=== PATIENT | male | born 1980 | race African-American/Black ===

== ENCOUNTER 2016-08-06 02:33 | Emergency (ER) | payer SELFPAY ==
[~2016-08-06] VITALS: Ht 180.3 cm; Wt 164.2 kg
[~2016-08-06 02:33] MED LIST: ALLOPURINOL100 MG PO; BENICAR HCT1 TA1 PO; FIORICET PO; INDOCIN25 MG PO; NAPROSYN500 MG OR; NO HOME MEDS; OXYCODONE30 MG PO; PERCOCET 5/325M1 TAB PO; PHENTERMINE H37.5 MG PO; PREVACID30 M2 OR; REGLAN10 MG OR; SUDAFED30 MG OR; ULORIC80 MG PO; ULTRAM50 M1 PO; VICKS NYQUI1 OR; ZPAK OR
[2016-08-06] MEDS ORDERED: ALLOPURINOL300 MG PO ×2 (03:03→05:02)
[2016-08-06] MEDS ORDERED: INDOCIN50 MG/CAP PO (03:03)
[2016-08-06] MEDS ORDERED: INDOMETHACIN25 MG PO (05:02)
[2016-08-06 05:07] VITALS: BP 162/107
== END 2016-08-06 05:10 | disposition home or self-care (01) | DRG 554 ==
LOC: ED 02:33
DX: M10.9 Gout, unspecified (principal)

== ENCOUNTER 2018-10-04 19:00 | Emergency (ER) | payer SELFPAY ==
[~2018-10-04] VITALS: Ht 180.3 cm; Wt 145.0 kg
[~2018-10-04 19:00] MED LIST changes: +ALLOPURINOL300 MG PO; +INDOCIN50 MG/CAP PO; +INDOMETHACIN25 MG PO
[2018-10-04] MEDS ORDERED: ULORIC80 MG PO (19:22)
[2018-10-04] MEDS ORDERED: TRAMADOL HCL50 MG PO (19:22)
[2018-10-04] MEDS ORDERED: PREDNISONE50 MG PO (19:22)
[2018-10-04] MEDS ORDERED: COLCHICINE0.6 M2 PO (19:22)
[2018-10-04] MEDS ORDERED: CATAPRES0.2 MG PO (19:22)
[2018-10-04 20:08] VITALS: BP 196/103
== END 2018-10-04 20:08 | disposition home or self-care (01) | DRG 554 ==
LOC: ED 19:00
DX: M10.041 Idiopathic gout, right hand (principal)

== ENCOUNTER 2019-07-26 | Emergency (ER) | payer OTHER ==
[~2019-07-26] MED LIST changes: +CATAPRES0.2 MG PO; +COLCHICINE0.6 M2 PO; +PREDNISONE50 MG PO; +TRAMADOL HCL50 MG PO
[2019-07-26] MEDS ORDERED: ALLOPURINOL100 MG PO (08:06)
[2019-07-26] MEDS ORDERED: CATAPRES0.2 MG PO (09:24)
[2019-07-26] MEDS ORDERED: FLEXERIL PO (09:25)
== END 2019-07-26 10:00 | disposition home or self-care (01) | DRG 552 ==
DX: S16.1XXA Strain of muscle, fascia and tendon at neck level, initial encounter (principal); S00.93XA Contusion of unspecified part of head, initial encounter; S33.5XXA Sprain of ligaments of lumbar spine, initial encounter; I10 Essential (primary) hypertension; V59.40XA Driver of pick-up truck or van injured in collision with unspecified motor vehicles in traffic accident, initial encounter

== ENCOUNTER 2020-01-17 21:36 | Emergency (ER) | payer OTHER ==
[~2020-01-17] VITALS: Ht 180.3 cm; Wt 127.0 kg
[~2020-01-17 21:36] MED LIST changes: +FLEXERIL PO
[2020-01-17 22:52] VITALS: BP 118/67
--- NOTE | 2020-01-19 08:00 | NUR ---
Notified patient of positive Covid results. Patient states he is feeling better and denies any dypnea. Advised patient to quarantine until contacted by [facility] and to return to the ED with any shortness of breath or difficulty breathing. Patient verbalized understanding.
== END 2020-01-17 22:52 | disposition home or self-care (01) ==
LOC: ED 21:36
DX: U07.1 COVID-19 (principal); J06.9 Acute upper respiratory infection, unspecified

== ENCOUNTER 2021-03-14 23:25 | Emergency (ER) | payer OTHER ==
[~2021-03-14] VITALS: Ht 180.3 cm; Wt 181.4 kg
[2021-03-15 01:12] LABS: HEMATOCRIT 42.2 % (39.0-50.0); HEMOGLOBIN 13.5 g/dl (14.0-18.0); IMMATURE GRANULOCYTES 0.5 % (0.0-5.0); MEAN CELL VOLUME 90.2 fL CALC (80.0-100.0); MEAN CORPUSCULAR HGB 28.8 pG CALC (26.0-32.0); NEUT# 3.51 thou/uL (1.82-7.42); RED BLOOD COUNT 4.68 mill/uL (4.70-6.10); RED CELL DISTRI WIDTH 13.8 % (11.5-15.5)
[2021-03-15 01:24] LABS: ALBUMIN 4.2 g/dL (3.2-5.0); ALKALINE PHOSPHATASE 81 u/l (38-126); ANION GAP 10 (6-22 (CALC)); BILIRUBIN, TOTAL 0.4 mg/dL (0.0-1.4); BUN 14 mg/dL (9-20); BUN/CREATININE RATIO 15 (12-20 (CALC)); CARBON DIOXIDE 30 mmol/l (22-30); CHLORIDE 105 mmol/l (95-108); CREATININE 0.9 mg/dL (0.7-1.3); GFR > 60 ML/MIN (>=60 (CALC)); GFR FOR AFR.AMER. > 60 ML/MIN (>=60 (CALC)); POTASSIUM 4.4 mmol/l (3.5-5.1); SGOT/AST 34 u/l (17-59); SODIUM 140 mmol/l (137-146); TOTAL PROTEIN 8.2 g/dL (6.3-8.2)
[2021-03-15] MEDS ORDERED: NORVASC PO (01:57)
[2021-03-15 02:33] VITALS: BP 202/101
== END 2021-03-15 02:33 | disposition home or self-care (01) ==
LOC: ED 23:25
PROVIDERS: Emergency Medicine
DX: J06.9 Acute upper respiratory infection, unspecified (principal); I10 Essential (primary) hypertension; M10.9 Gout, unspecified; Z20.822 Contact with and (suspected) exposure to COVID-19

== ENCOUNTER 2022-03-06 01:28 | Emergency (ER) | payer OTHER ==
[~2022-03-06] VITALS: Ht 180.3 cm; Wt 145.0 kg
[~2022-03-06 01:28] MED LIST changes: +NORVASC PO
[2022-03-06 01:45] VITALS: BP 231/143
[2022-03-06] MEDS ORDERED: PREDNISONE50 MG PO (01:50)
[2022-03-06] MEDS ORDERED: TRAMADOL HCL50 MG PO (01:50)
[2022-03-06 02:00] VITALS: BP 203/133
[2022-03-06 02:50] VITALS: BP 182/90
[2022-03-06] MEDS ORDERED: ALLOPURINOL300 MG PO (02:54)
== END 2022-03-06 02:22 | disposition home or self-care (01) ==
LOC: ED 01:28
DX: M10.041 Idiopathic gout, right hand (principal); I10 Essential (primary) hypertension

== ENCOUNTER 2022-05-07 19:23 | Emergency (ER) | payer OTHER ==
[2022-05-07] VITALS (12 sets, daily range): BP systolic 182–222; BP diastolic 118–146
[~2022-05-07] VITALS: Ht 180.3 cm; Wt 136.0 kg
[2022-05-07] MEDS ORDERED: MEDDOSEPAK PO (22:50)
[2022-05-07] MEDS ORDERED: LABETALOL HYDR200 MG PO (22:50)
== END 2022-05-07 23:03 | disposition home or self-care (01) ==
LOC: ED 19:23
DX: M10.021 Idiopathic gout, right elbow (principal); I10 Essential (primary) hypertension; E66.9 Obesity, unspecified

== ENCOUNTER 2022-09-08 20:00 | Emergency (ER) | payer OTHER ==
[2022-09-08] VITALS (19 sets, daily range): BP systolic 152–203; BP diastolic 99–121
[~2022-09-08] VITALS: Ht 180.3 cm; Wt 170.0 kg
[~2022-09-08 20:00] MED LIST changes: +LABETALOL HYDR200 MG PO; +MEDDOSEPAK PO
[2022-09-08 20:41] LABS: BASO% 0.3 % (0-3); EOS% 0.6 % (0-8); HEMATOCRIT 44.1 % (39.0-50.0); HEMOGLOBIN 14.2 g/dl (14.0-18.0); IMMATURE GRANULOCYTES 0.1 % (0.0-5.0); LYMPH% 25.2 % (15-41); MEAN CELL VOLUME 86.5 fL CALC (80.0-100.0); MEAN CORPUSCULAR HGB 27.8 pG CALC (26.0-32.0); MEAN CORPUSCULAR HGB CONC 32.2 g/dL CAL (32.0-36.0); MONO% 7.4 % (2-13); NEUT# 4.5 thou/uL (1.82-7.42); NEUT% 66.4 % (42-76); RED BLOOD COUNT 5.1 mill/uL (4.70-6.10); RED CELL DISTRI WIDTH 13.3 % (11.5-15.5)
[2022-09-08 20:53] LABS: ALBUMIN 4.7 g/dL (3.2-5.0); ALKALINE PHOSPHATASE 52 u/l (38-126); ANION GAP 15 (6-22 (CALC)); BUN 10 mg/dL (9-20); BUN/CREATININE RATIO 11 (12-20 (CALC)); CARBON DIOXIDE 26 mmol/l (22-30); CHLORIDE 101 mmol/l (95-108); GFR FOR AFR.AMER. > 60 ML/MIN (>=60 (CALC)); GFR OTHER RACES > 60 ML/MIN (>=60 (CALC)); POTASSIUM 4.4 mmol/l (3.5-5.1); SGOT/AST 42 u/l (17-59); SODIUM 138 mmol/l (137-146); TOTAL PROTEIN 8.7 g/dL (6.3-8.2)
[2022-09-08 21:34] LABS: URINE BILIRUBIN - DIPSTICK NEGATIVE (NEGATIVE); URINE BLOOD DIPSTICK NEGATIVE (NEGATIVE); URINE COLOR YELLOW; URINE GLUCOSE - DIPSTICK NEGATIVE (NEGATIVE); URINE KETONE NEGATIVE (NEGATIVE); URINE LEUK ESTERASE NEGATIVE (NEGATIVE); URINE NITRITE - DIPSTICK NEGATIVE (Negative); URINE PROTEIN - DIPSTICK 30 mg/dL (NEG-TRACE); URINE UROBILINOGEN - DIPSTICK 0.2 E.U./dL (0.2)
[2022-09-08 21:35] LABS: URINE RBC 0-2 RBC/hpf (0-5); URINE SQUAMOUS EPITHELIAL CELL RARE EPI/hpf (0-FEW)
[2022-09-08] MEDS ORDERED: CLONIDINE0.2 MG PO ×2 (22:29→22:30)
== END 2022-09-08 22:35 | DRG 305 ==
LOC: ED 20:00
PROVIDERS: Emergency Medicine
DX: I10 Essential (primary) hypertension (principal); M10.9 Gout, unspecified; E66.9 Obesity, unspecified